=== PATIENT | female | born 1975 | race Caucasian/White ===

== ENCOUNTER 2021-05-06 12:39 | Inpatient (IN) ==
--- NOTE | 2021-05-06 14:00 | ED.ABDFE ---
HPI Time Seen Time Seen by Provider: 05/06/21 13:48 PCP Primary Care Physician: NICHELLE CASTELLANOS Complaint Chief Complaint:: PT REPORTS TO HAVING A HX OF A ABD GROIN ( PERIUMBELICAL ) PT REPORT THAT SHE IS HAVING INCREASED PAIN TO HIS AREA WHEN LIFTING COUGHING ,AND EATING ,BR Self Treatment fo Chief Complaint: TYLENOL COVID-19 Coronavirus risk:travel/contact w/high risk person: No Has patient experienced Coronavirus symptoms: No Source History Provided: Patient Mode of arrival Mode of Arrival: Ambulatory Timing Onset of Chief Complaint: 05/01/21 PMH PMH Past Medical History: Yes Past Medical History: Hypertension Past Surgical History: Yes Surgical History: Hysterectomy Family History History of Family Medical Conditions: Yes Family Medical History: Cancer Family Medical History Comment: HEART, Social History Does patient currently use any type of tobacco product: Yes Have you used tobacco products in the last 12 months: Yes Type of Tobacco Use: Cigarettes How many years tobacco product used: 30 Does any household member use tobacco: No Alcohol Use: None Do you use any recreational Drugs:: No Lives With: Family Lives Where: Home Travel Risk Coronavirus risk:travel/contact w/high risk person: No Has patient experienced Coronavirus symptoms: No Infectious screening In the last 2 months have you had wt loss of >10#?: NO Have you had fever, night sweats or hemotysis?: No Have you traveled outside the country in the last 6 months?: No Isolation: Standard PE Vital Signs Vitals: Temperature 98.3 F Pulse Rate 89 Respiratory Rate 22 Blood Pressure [Left Arm] 133/68 Blood Pressure 196/81 O2 Sat by Pulse Oximetry 97 ROR Labs Reviewed Result Diagrams: 05/06/21 14:20 05/06/21 14:20 Laboratory: WBC 8.6 X10^3/uL (3.6-10.0) 05/06/21 14:20 RBC 5.12 X10^6/uL (3.5-5.4) 05/06/21 14:20 Hgb 13.3 g/dL (12.0-16.0) 05/06/21 14:20 Hct 40.0 % (36.0-47.0) 05/06/21 14:20 MCV 78.1 fL (80.0-100.0) L 05/06/21 14:20 MCH 26.0 pg (27.0-34.0) L 05/06/21 14:20 MCHC 33.3 g/dL (33.0-35.0) 05/06/21 14:20 RDW 15.3 % (11.6-16.5) 05/06/21 14:20 Plt Count 195 X10^3/uL (150.0-450.0) 05/06/21 14:20 MPV 8.6 fL (7.4-11.0) 05/06/21 14:20 Neut % (Auto) 63.3 % (42.0-75.0) 05/06/21 14:20 Lymph % (Auto) 26.2 % (21.0-51.0) 05/06/21 14:20 [place] % (Auto) 7.1 % (0.0-13.0) 05/06/21 14:20 Eos % (Auto) 2.5 % (0.9-2.9) 05/06/21 14:20 Baso % (Auto) 0.9 % (0.2-1.0) 05/06/21 14:20 Neut # (Auto) 5.4 x10^3/uL (2.2-4.8) H 05/06/21 14:20 Lymph # (Auto) 2.2 X10^3/uL (1.3-2.9) 05/06/21 14:20 [place] # (Auto) 0.6 x10^3/uL (0.3-0.8) 05/06/21 14:20 Eos # (Auto) 0.2 x10^3/uL (0.0-0.2) 05/06/21 14:20 Baso # (Auto) 0.1 X10^3/uL (0.0-0.1) 05/06/21 14:20 Absolute Nucleated RBC 0.0 /100WBC 05/06/21 14:20 Sodium 142 mmol/L (136-145) 05/06/21 14:20 Corrected Sodium TNP 05/06/21 14:20 Potassium 4.5 mmol/L (3.5-5.1) 05/06/21 14:20 Chloride 107 mmol/L (98-107) 05/06/21 14:20 Carbon Dioxide 32.2 mmol/L (21-32) H 05/06/21 14:20 BUN 14 mg/dL (7-18) 05/06/21 14:20 Creatinine 0.76 mg/dL (0.55-1.02) 05/06/21 14:20 Est GFR (MDRD) Af Amer > 60 (>60) 05/06/21 14:20 Est GFR (MDRD) Non-Af > 60 (>60) 05/06/21 14:20 Glucose 101 mg/dL (65-99) H 05/06/21 14:20 Calcium 8.8 mg/dL (8.5-10.1) 05/06/21 14:20 Corrected Calcium 9.4 mg/dL (8.5-10.1) 05/06/21 14:20 Total Bilirubin 0.70 mg/dL (0.2-1.0) 05/06/21 14:20 AST 37 Units/L (15-37) 05/06/21 14:20 ALT 52 Units/L (12-78) 05/06/21 14:20 Alkaline Phosphatase 105 Units/L (46-116) 05/06/21 14:20 Total Protein 6.5 g/dL (6.4-8.2) 05/06/21 14:20 Albumin 3.2 g/dL (3.4-5.0) L 05/06/21 14:20 Globulin 3.3 g/dL (2.5-4.5) 05/06/21 14:20 Albumin/Globulin Ratio 1.0 Ratio (1.1-2.1) L 05/06/21 14:20 Amylase 36 Units/L (25-115) 05/06/21 14:20 Lipase 82 Units/L (73-393) 05/06/21 14:20 Specimen Type Random urine 05/06/21 15:09 Urine Color Yellow (YELLOW) 05/06/21 15:09 Urine Appearance Clear (CLEAR) 05/06/21 15:09 Urine pH 7.0 (5.0 - 8.0) 05/06/21 15:09 Ur Specific [place] 1.010 (1.000-1.030) 05/06/21 15:09 Urine Protein Negative (NEGATIVE) 05/06/21 15:09 Urine Glucose (UA) Negative (NEGATIVE) 05/06/21 15:09 Urine Ketones Negative (NEGATIVE) 05/06/21 15:09 Urine Occult Blood 1+ (NEGATIVE) 05/06/21 15:09 Urine Nitrite Negative (NEGATIVE) 05/06/21 15:09 Urine Bilirubin Negative (NEGATIVE) 05/06/21 15:09 Urine Urobilinogen 1+ (NORMAL) 05/06/21 15:09 Ur Leukocyte Esterase Negative (NEGATIVE) 05/06/21 15:09 Urine RBC 3-5 /HPF (0-3) A 05/06/21 15:09 Urine WBC 0-2 /HPF (0-5) 05/06/21 15:09 Ur Squamous Epith Cells Moderate /HPF (NEGATIVE) 05/06/21 15:09 Urine Bacteria 1+ /HPF (NEGATIVE) 05/06/21 15:09 Urine Mucus Few /HPF (NEGATIVE) 05/06/21 15:09 Ur Culture Indicated? No/not indicated 05/06/21 15:09 SARS-CoV-2 (PCR) Negative (NEGATIVE) 05/06/21 15:05 Influenza Type A (PCR) Negative (NEGATIVE) 05/06/21 15:05 Influenza Type B (PCR) Negative (NEGATIVE) 05/06/21 15:05 RSV (PCR) Negative (NEGATIVE) 05/06/21 15:05 Opioid Opioid Risk Tool Age (Vikas box if 16-45): No History of Preadolescent Sexual Abuse: No Total: 0 Total Score Risk Category: Low Risk Copyright: Po [place] predicting aberrant behaviors
[2021-05-06 14:30] LABS: BASOPHILS # (AUTO) 0.1 X10^3/uL (0.0-0.1); BASOPHILS % (AUTO) 0.9 % (0.2-1.0); EOSINOPHILS # (AUTO) 0.2 x10^3/uL (0.0-0.2); EOSINOPHILS % (AUTO) 2.5 % (0.9-2.9); HEMOGLOBIN 13.3 g/dL (12.0-16.0); LYMPHOCYTES # (AUTO) 2.2 X10^3/uL (1.3-2.9); LYMPHOCYTES % (AUTO) 26.2 % (21.0-51.0); MEAN CORPUSCULAR HGB CONC 33.3 g/dL (33.0-35.0); MEAN CORPUSCULAR VOLUME 78.1 fL (80.0-100.0); MEAN PLATELET VOLUME 8.6 fL (7.4-11.0); MONOCYTES # (AUTO) 0.6 x10^3/uL (0.3-0.8); MONOCYTES % (AUTO) 7.1 % (0.0-13.0); NEUTROPHILS # (AUTO) 5.4 x10^3/uL (2.2-4.8); NEUTROPHILS % (AUTO) 63.3 % (42.0-75.0); PLATELET COUNT 195 X10^3/uL (150.0-450.0); RED BLOOD COUNT 5.12 X10^6/uL (3.5-5.4); RED CELL DISTRIBUTION WIDTH 15.3 % (11.6-16.5); WHITE BLOOD COUNT 8.6 X10^3/uL (3.6-10.0)
--- NOTE | 2021-05-06 14:34 | CT ---
HISTORYPT REPORTS HAVING A HX OF ABD GROIN HERNIA ( PERIUMBELICAL ) PT REPORT THAT SHE IS HAVING INCREASED PAIN TO HIS AREA WHEN LIFTING COUGHING,AND EATINGSTUDYABDOMEN/PELVIS W/O CONCOMPARISONNoneTECHNIQUEMultiple axial images of the chest were obtained from the thoracic inlet to the upper abdomen after the administration of IV contrast. 3D reconstructions utilizing axial MIPS imaging was performed and reviewed. Dose reduction techniques including Automated Exposure Control (AEC) and adjustment of mA and kV were utilized.FINDINGSIncluded lung bases show scattered atelectasis. Liver shows evidence of steatosis. Gallbladder, spleen, kidneys, adrenal glands, pancreas grossly unremarkable. No bowel obstruction or overt inflammation. Pelvis is somewhat limited by beam hardening artifact and low signal to noise ratio. Appendix unremarkable. Patient's extreme ventral abdominal wall excluded from field of view due to habitus however there is a fat containing umbilical hernia with approximately 8 x 10 cm sac size and 3.1 cm aperture with mild fat stranding of the mesenteric fat at and deep to the aperture without significant stranding or fluid in the hernia sac. No bowel involvement of the hernia.Urinary bladder grossly unremarkable. Uterus absent. Ovaries not seen. No acute osseous finding. Degenerative changes of the spine. Scattered atherosclerosis.IMPRESSIONFat containing umbilical hernia with mild stranding could be incarcerated. Clinical correlation. Exam somewhat limited due to habitus without other definite acute finding.Electronically signed by: Trenton Maurer (May 06, 2021 14:32:12)
[2021-05-06 14:42] LABS: ALANINE AMINOTRANSFERASE 52 Units/L (12-78); ALBUMIN 3.2 g/dL (3.4-5.0); ALKALINE PHOSPHATASE 105 Units/L (46-116); AMYLASE 36 Units/L (25-115); ASPARTATE AMINO TRANSFERASE 37 Units/L (15-37); BLOOD UREA NITROGEN 14 mg/dL (7-18); CALCIUM 8.8 mg/dL (8.5-10.1); CARBON DIOXIDE 32.2 mmol/L (21-32); CHLORIDE 107 mmol/L (98-107); COR CA(FOR HYPOALB) 9.4 mg/dL (8.5-10.1); CREATININE 0.76 mg/dL (0.55-1.02); LIPASE 82 Units/L (73-393); SODIUM 142 mmol/L (136-145); TOTAL PROTEIN 6.5 g/dL (6.4-8.2); eGFR NON BLACK RACES > 60 (>60)
[2021-05-06 15:25] LABS: BILIRUBIN,URINE NEGATIVE (NEGATIVE); BLOOD/HEMOGLOBIN,URINE 1+ (NEGATIVE); GLUCOSE, URINE NEGATIVE (NEGATIVE); KETONES,URINE NEGATIVE (NEGATIVE); LEUKOCYTE ESTERASE ,URINE NEGATIVE (NEGATIVE); NITRITES,URINE NEGATIVE (NEGATIVE); PROTEIN,URINE NEGATIVE (NEGATIVE); UROBILINOGEN,URINE 1+ (NORMAL)
[2021-05-06 15:30] LABS: APPEARANCE,URINE CLEAR (CLEAR); COLOR,URINE YELLOW (YELLOW)
[2021-05-06 15:40] LABS: BACTERIA,URINE 1+ /HPF (NEGATIVE); MUCUS,URINE FEW /HPF (NEGATIVE); SQUAMOUS EPITHELIAL CELL,UR MODERATE /HPF (NEGATIVE)
--- NOTE | 2021-05-06 17:46 | DR.H&P ---
H&P History & Physical for Day of: H&P Date: 05/06/21 Chief Complaint Chief Complaint: 45-year-old morbidly obese female with known incarcerated umbilical/hernia with increasing abdominal pain. Some nausea and vomiting earlier today. Past medical history significant for tobacco abuse, COPD, hypertension. Allergies Allergies Allergy/AdvReac Type Severity Reaction Status Date / Time Penicillins Allergy Verified 05/06/21 12:53 Sulfa (Sulfonamide Allergy Verified 05/06/21 12:53 Antibiotics) [SULFA] History of Present Illness History of Present Illness: As above. CT scan performed in the emergency room consistent with incarcerated ventral/hernia incarcerated omentum. No obvious bowel incarcerated in this hernia. Past Medical History Past Medical History: COPD and Hypertension Past Surgical History Surgical History: Hysterectomy (Done laparoscopically within the last year.) Family History Family Medical History: Cancer Social History Does patient currently use any type of tobacco product: Yes Have you used tobacco products in the last 12 months: Yes Type of Tobacco Use: Cigarettes (> 1 pack per day) How many years tobacco product used: 30 Does any household member use tobacco: No Alcohol Use: None Medications Home Medications: Penicillins Allergy (Verified 05/06/21 12:53) Sulfa (Sulfonamide Antibiotics) [SULFA] Allergy (Verified 05/06/21 12:53) Labs Result Diagrams: 05/06/21 14:20 05/06/21 14:20 Labs: Laboratory WBC 8.6 X10^3/uL (3.6-10.0) 05/06/21 14:20 RBC 5.12 X10^6/uL (3.5-5.4) 05/06/21 14:20 Hgb 13.3 g/dL (12.0-16.0) 05/06/21 14:20 Hct 40.0 % (36.0-47.0) 05/06/21 14:20 MCV 78.1 fL (80.0-100.0) L 05/06/21 14:20 MCH 26.0 pg (27.0-34.0) L 05/06/21 14:20 MCHC 33.3 g/dL (33.0-35.0) 05/06/21 14:20 RDW 15.3 % (11.6-16.5) 05/06/21 14:20 Plt Count 195 X10^3/uL (150.0-450.0) 05/06/21 14:20 MPV 8.6 fL (7.4-11.0) 05/06/21 14:20 Neut % (Auto) 63.3 % (42.0-75.0) 05/06/21 14:20 Lymph % (Auto) 26.2 % (21.0-51.0) 05/06/21 14:20 [place] % (Auto) 7.1 % (0.0-13.0) 05/06/21 14:20 Eos % (Auto) 2.5 % (0.9-2.9) 05/06/21 14:20 Baso % (Auto) 0.9 % (0.2-1.0) 05/06/21 14:20 Neut # (Auto) 5.4 x10^3/uL (2.2-4.8) H 05/06/21 14:20 Lymph # (Auto) 2.2 X10^3/uL (1.3-2.9) 05/06/21 14:20 [place] # (Auto) 0.6 x10^3/uL (0.3-0.8) 05/06/21 14:20 Eos # (Auto) 0.2 x10^3/uL (0.0-0.2) 05/06/21 14:20 Baso # (Auto) 0.1 X10^3/uL (0.0-0.1) 05/06/21 14:20 Absolute Nucleated RBC 0.0 /100WBC 05/06/21 14:20 Sodium 142 mmol/L (136-145) 05/06/21 14:20 Corrected Sodium TNP 05/06/21 14:20 Potassium 4.5 mmol/L (3.5-5.1) 05/06/21 14:20 Chloride 107 mmol/L (98-107) 05/06/21 14:20 Carbon Dioxide 32.2 mmol/L (21-32) H 05/06/21 14:20 BUN 14 mg/dL (7-18) 05/06/21 14:20 Creatinine 0.76 mg/dL (0.55-1.02) 05/06/21 14:20 Est GFR (MDRD) Af Amer > 60 (>60) 05/06/21 14:20 Est GFR (MDRD) Non-Af > 60 (>60) 05/06/21 14:20 Glucose 101 mg/dL (65-99) H 05/06/21 14:20 Calcium 8.8 mg/dL (8.5-10.1) 05/06/21 14:20 Corrected Calcium 9.4 mg/dL (8.5-10.1) 05/06/21 14:20 Total Bilirubin 0.70 mg/dL (0.2-1.0) 05/06/21 14:20 AST 37 Units/L (15-37) 05/06/21 14:20 ALT 52 Units/L (12-78) 05/06/21 14:20 Alkaline Phosphatase 105 Units/L (46-116) 05/06/21 14:20 Total Protein 6.5 g/dL (6.4-8.2) 05/06/21 14:20 Albumin 3.2 g/dL (3.4-5.0) L 05/06/21 14:20 Globulin 3.3 g/dL (2.5-4.5) 05/06/21 14:20 Albumin/Globulin Ratio 1.0 Ratio (1.1-2.1) L 05/06/21 14:20 Amylase 36 Units/L (25-115) 05/06/21 14:20 Lipase 82 Units/L (73-393) 05/06/21 14:20 Specimen Type Random urine 05/06/21 15:09 Urine Color Yellow (YELLOW) 05/06/21 15:09 Urine Appearance Clear (CLEAR) 05/06/21 15:09 Urine pH 7.0 (5.0 - 8.0) 05/06/21 15:09 Ur Specific [place] 1.010 (1.000-1.030) 05/06/21 15:09 Urine Protein Negative (NEGATIVE) 05/06/21 15:09 Urine Glucose (UA) Negative (NEGATIVE) 05/06/21 15:09 Urine Ketones Negative (NEGATIVE) 05/06/21 15:09 Urine Occult Blood 1+ (NEGATIVE) 05/06/21 15:09 Urine Nitrite Negative (NEGATIVE) 05/06/21 15:09 Urine Bilirubin Negative (NEGATIVE) 05/06/21 15:09 Urine Urobilinogen 1+ (NORMAL) 05/06/21 15:09 Ur Leukocyte Esterase Negative (NEGATIVE) 05/06/21 15:09 Urine RBC 3-5 /HPF (0-3) A 05/06/21 15:09 Urine WBC 0-2 /HPF (0-5) 05/06/21 15:09 Ur Squamous Epith Cells Moderate /HPF (NEGATIVE) 05/06/21 15:09 Urine Bacteria 1+ /HPF (NEGATIVE) 05/06/21 15:09 Urine Mucus Few /HPF (NEGATIVE) 05/06/21 15:09 Ur Culture Indicated? No/not indicated 05/06/21 15:09 SARS-CoV-2 (PCR) Negative (NEGATIVE) 05/06/21 15:05 Influenza Type A (PCR) Negative (NEGATIVE) 05/06/21 15:05 Influenza Type B (PCR) Negative (NEGATIVE) 05/06/21 15:05 RSV (PCR) Negative (NEGATIVE) 05/06/21 15:05 Review of Systems Constitutional: denies No Symptoms Reported, See HPI, Fever, Chills, Sweats, Weakness, Malaise and Other Eyes: denies No Symptoms Reported, See HPI, Pain, Vision Change, Conjunctivae Inflammation, Eyelid Inflammation, Redness and Other ENT: Other (cough) Respiratory: denies No Symptoms Reported, See HPI, Dry, Shortness of Breath, Hemoptysis, SOB with Excertion, Pleuritic Pain, Sputum, Wheezing and Other Cardiovascular: denies No Symptoms Reported, Chest Pain, See HPI, Palpitations, Orthopnea, Paroxysmal Noc. Dyspnea, Edema, Light Headedness and Other Gastrointestinal: Nausea and Vomiting Genitourinary: denies No Symptoms Reported, See HPI, Dysuria, Frequency, Incontinence, Hematuria, Retention and Other Musculoskeletal: denies No Symptoms Reported, See HPI, Shoulder Pain, Arm Pain, Back Pain, Hand Pain, Leg Pain, Foot Pain, Neck Pain and Other Skin: denies No Symptoms Reported, See HPI, Rash, Lesions, Jaundice, Bruising, Wound, Ecchymosis and Other Neurological: denies No Symptoms Reported, See HPI, Weakness, Numbness, Incoordination, Change in Speech, Confusion, Seizures and Other Physical Exam Vital Signs: Temperature 98.3 F Pulse Rate [Left Brachial] 65 Pulse Rate 89 Respiratory Rate 18 Blood Pressure [Left Arm] 145/68 Blood Pressure 196/81 O2 Sat by Pulse Oximetry 100 Oriented: Normal, Time, Person and Place Eyes: negative Normal, Blurred Vision, Diplopia, Discharge, Pain, Redness, Photophobia and Other Ear: negative Normal, Right, Left, Swelling, Ecchymosis, Hemotypanum, Abrasion and Laceration Nose: negative Normal, Injected, Discharge, Blood and Other Throat: negative Normal, Tonsillar Hypertrophy, Red, Exudate, Dry and Other Respiratory: Rhonchi Throughout Cardiovascular: Normal : negative Normal, Dysuria, Hematuria, Frequency, Discharge, Testicular Pain, Bleeding, and Other Auscultation: Bowel Sounds: Normal Palpation: Other (incarcerated ventral / umbilical hernia) Tenderness: Normal Skin: negative Normal, Decreased Turgur, Rash, Papular, Macular, Maculopapular, Vesicular, Pustular, Petechial, Red, Tender, Hot, Diaphoresis, Wound, Bruising, Ecchymosis and Other Musculoskeletal: negative Normal, Right, Left, Shoulder, Clavicle, Arm, Elbow, Forearm, Wrist, Hand, Hip, Thigh, Knee, Leg, Ankle, Foot, Back:Thoracic, Back:Lumbar, Back:Midline, Back:Paraspinous, Pelvis, Swelling, Tender, Deformity, Pulse Deficit, Motor Deficit, Sensory Deficit, Instability and Crepitance Psychiatric: negative Normal, Anxiety, Depression, Agitation and Other Mood Description: Calm and Happy Speech Pattern: Clear and Appropriate Assessment/Plan (1) Incarcerated umbilical hernia: Status: Acute Plan: Patient to be admitted, hydrated and control pain. Will plan laparoscopic ventral hernia repair tomorrow. Risk and benefits discussed with the patient including possibility of conversion to open procedure. Possibility of bowel injury also discussed with the patient. She understands and agrees to proceed. Review H&P Reviewed: Yes Patient was examined?: Yes
[2021-05-06] MEDS: LR 1000 ML IV 1,000 ML IV SCH (18:05)
[2021-05-06] MEDS ORDERED: ZOFRAN INJ 4 MG VIAL IVP PRN (19:08)
[2021-05-06] MEDS: DILAUDID INJ IVP PRN (21:02)
[2021-05-07] MEDS: DILAUDID INJ IVP PRN ×2 (06:10→10:15)
[2021-05-07 07:43] LABS: BASOPHILS % (AUTO) 0.3 % (0.2-1.0); EOSINOPHILS # (AUTO) 0.2 x10^3/uL (0.0-0.2); EOSINOPHILS % (AUTO) 2.4 % (0.9-2.9); HEMATOCRIT 39.9 % (36.0-47.0); HEMOGLOBIN 13.3 g/dL (12.0-16.0); LYMPHOCYTES # (AUTO) 2.5 X10^3/uL (1.3-2.9); LYMPHOCYTES % (AUTO) 31.6 % (21.0-51.0); MEAN CORPUSCULAR HGB CONC 33.2 g/dL (33.0-35.0); MEAN CORPUSCULAR VOLUME 78.3 fL (80.0-100.0); MEAN PLATELET VOLUME 8.9 fL (7.4-11.0); MONOCYTES # (AUTO) 0.5 x10^3/uL (0.3-0.8); NEUTROPHILS # (AUTO) 4.8 x10^3/uL (2.2-4.8); NEUTROPHILS % (AUTO) 59.7 % (42.0-75.0); PLATELET COUNT 176 X10^3/uL (150.0-450.0); RED CELL DISTRIBUTION WIDTH 15.4 % (11.6-16.5); WHITE BLOOD COUNT 8.1 X10^3/uL (3.6-10.0)
[2021-05-07 08:02] LABS: ALANINE AMINOTRANSFERASE 58 Units/L (12-78); ALKALINE PHOSPHATASE 103 Units/L (46-116); AMYLASE 34 Units/L (25-115); ASPARTATE AMINO TRANSFERASE 41 Units/L (15-37); BLOOD UREA NITROGEN 9 mg/dL (7-18); CALCIUM 8.3 mg/dL (8.5-10.1); CARBON DIOXIDE 29.1 mmol/L (21-32); CHLORIDE 106 mmol/L (98-107); COR CA(FOR HYPOALB) 9.1 mg/dL (8.5-10.1); CREATININE 0.66 mg/dL (0.55-1.02); LIPASE 75 Units/L (73-393); SODIUM 141 mmol/L (136-145); TOTAL PROTEIN 6.2 g/dL (6.4-8.2); eGFR NON BLACK RACES > 60 (>60)
[2021-05-07] MEDS: LR 1000 ML IV 1,000 ML IV SCH (08:44)
[2021-05-07] MEDS ORDERED: PROVENTIL NEB TX 0.083% 2.5MG/ 3ML ONE (09:17)
[2021-05-07] MEDS ORDERED: PROVENTIL NEB TX 0.083% 2.5MG/ 3ML NEB ONE (09:50)
[2021-05-07] MEDS ORDERED: ANCEF 1 GRAM IV PREMIX* 0 G/0 ML BAG IV ONE (12:29)
[2021-05-07] MEDS ORDERED: LR 1000 ML IV 1,000 ML IV ONE (12:29)
[2021-05-07] MEDS ORDERED: OFIRMEV IV 1000 MG VIAL 1,000 MG/100 ML VIAL IV ONE (13:11)
[2021-05-07] MEDS ORDERED: BRIDION ONE (13:11)
[2021-05-07] MEDS ORDERED: DILAUDID INJ ONE (13:11)
[2021-05-07] MEDS ORDERED: DECADRON INJ ONE (13:11)
[2021-05-07] MEDS ORDERED: FENTANYL VIAL INJ 100 mcg ONE (13:11)
[2021-05-07] MEDS ORDERED: PEPCID 20 MG IV PREMIX* 20 MG/50 ML BAG IV ONE (13:12)
[2021-05-07] MEDS ORDERED: VERSED ONE (13:33)
[2021-05-07] MEDS ORDERED: DIPRIVAN VIAL ONE (13:33)
[2021-05-07] MEDS ORDERED: XYLOCAINE 2 % (PLAIN) ONE (13:33)
[2021-05-07] MEDS ORDERED: ZOFRAN INJ 4 MG VIAL ONE (13:33)
[2021-05-07] MEDS ORDERED: ULTANE GAS IN ONE (13:33)
[2021-05-07] MEDS ORDERED: ZEMURON 50 MG VIAL ONE (13:33)
[2021-05-07] MEDS ORDERED: KETALAR ONE (13:33)
[2021-05-07] MEDS ORDERED: MARCAINE/EPINEPHRINE ONE (13:41)
--- NOTE | 2021-05-07 15:26 | OR.IMMED ---
IMMEDIATE POST-OP NOTE Immediate Post-Op Note Pre-Op Diagnosis: Incarcerated ventral/umbilical hernia Post-Op Diagnosis: same Procedure: Laparoscopic repair of incarcerated ventral/umbilical hernia Description of Procedure: see operative summary Surgeon/English Language Learner Tutor: Fang Findings: as above Specimens Removed: none Estimated Blood Loss: < 100 cc Drains: Steven Martinez (EUNICE in space at umbilicus after omentum evacuated ) Complications: NOne Discharge Progress Notes: To PAC then floor, D/C home later today or in AM Condition: Stable Final Diagnosis: as above
[2021-05-07] MEDS ORDERED: ZOFRAN INJ 4 MG VIAL IVP PRN (15:31)
[2021-05-07] MEDS ORDERED: BARHEMSYS INJ IVP PRN (15:31)
[2021-05-07] MEDS ORDERED: PHENERGAN INJ 25 MG IM PRN (15:31)
[2021-05-07] MEDS ORDERED: DILAUDID INJ IVP PRN (15:31)
[2021-05-07] MEDS ORDERED: REGLAN INJ 10 MG VIAL IVP PRN (15:31)
[2021-05-07] MEDS ORDERED: BENADRYL INJ 50 MG VIAL IVP PRN (15:31)
[2021-05-07] MEDS: PERCOCET TAB 5/325 MG PO PRN (21:15)
--- NOTE | 2021-05-07 21:22 | NOTE.SOAP ---
Soap Note Note for Day of Date of Exam: 05/07/21 Subjective Data Subjective Data: earlier today s/p laparoscopic ventral hernia repair of incarcerated ventral hernia. Binder in place . Taking liquids . Objective Data Temperature: 97.6 F Pulse Rate: 72 Respiratory Rate: 20 Blood Pressure: 132/65 O2 Sat by Pulse Oximetry: 95 Objective Data: EUNICE with serosangunous fluid drainage Assessment Assessment: S/P laparoscopic ventral hernia repair . Plan Plan: Discharge home in AM
[2021-05-07] MEDS ORDERED: DUONEB 0.5 MG/3 MG (3 mL) NEB ONE (22:00)
[2021-05-08] MEDS ORDERED: PROVENTIL NEB TX 0.083% 2.5MG/ 3ML NEB ONE (07:15)
[2021-05-08] MEDS ORDERED: PROVENTIL NEB TX 0.083% 2.5MG/ 3ML ONE (07:22)
[2021-05-08 08:39] VITALS: BP 138/72
[2021-05-08] MEDS: PERCOCET TAB 5/325 MG PO PRN (09:49)
--- NOTE | 2021-05-08 11:37 | PCM.DCPLAN ---
DISCHARGE SUMMARY Admission Date Date of Admission: 05/06/21 Discharge Date Discharge Date: 05/08/21 Admission Diagnoses (1) Incarcerated umbilical hernia: Status: Acute Discharge Diagnoses Discharge Diagnosis: incarcerated ventral/umbilical hernia Discharge Medications Discharge Medications: Home Medication List amitriptyline 50 mg PO HS 05/07/21 [History] duloxetine [Cymbalta] 20 mg PO BID 05/07/21 [History] lamotrigine 25 mg PO BID 05/07/21 [History] lisinopril 40 mg PO DAILY 05/07/21 [History] metoprolol succinate 100 mg PO DAILY 05/07/21 [History] oxycodone-acetaminophen 1 tab PO Q4H PRN #30 tab MDD 4 05/08/21 [Rx] Prescriptions: oxycodone-acetaminophen Florian Headley [facility] Course Vital Signs: Temperature 97.6 F Pulse Rate [Left Brachial] 104 Pulse Rate 72 Respiratory Rate 20 Blood Pressure [Left Arm] 138/72 Blood Pressure 132/65 O2 Sat by Pulse Oximetry 90 Latest Lab Results: Laboratory Last Values WBC 8.1 X10^3/uL (3.6-10.0) 05/07/21 07:06 RBC 5.10 X10^6/uL (3.5-5.4) 05/07/21 07:06 Hgb 13.3 g/dL (12.0-16.0) 05/07/21 07:06 Hct 39.9 % (36.0-47.0) 05/07/21 07:06 MCV 78.3 fL (80.0-100.0) L 05/07/21 07:06 MCH 26.0 pg (27.0-34.0) L 05/07/21 07:06 MCHC 33.2 g/dL (33.0-35.0) 05/07/21 07:06 RDW 15.4 % (11.6-16.5) 05/07/21 07:06 Plt Count 176 X10^3/uL (150.0-450.0) 05/07/21 07:06 MPV 8.9 fL (7.4-11.0) 05/07/21 07:06 Neut % (Auto) 59.7 % (42.0-75.0) 05/07/21 07:06 Lymph % (Auto) 31.6 % (21.0-51.0) 05/07/21 07:06 [place] % (Auto) 6.0 % (0.0-13.0) 05/07/21 07:06 Eos % (Auto) 2.4 % (0.9-2.9) 05/07/21 07:06 Baso % (Auto) 0.3 % (0.2-1.0) 05/07/21 07:06 Neut # (Auto) 4.8 x10^3/uL (2.2-4.8) 05/07/21 07:06 Lymph # (Auto) 2.5 X10^3/uL (1.3-2.9) 05/07/21 07:06 [place] # (Auto) 0.5 x10^3/uL (0.3-0.8) 05/07/21 07:06 Eos # (Auto) 0.2 x10^3/uL (0.0-0.2) 05/07/21 07:06 Baso # (Auto) 0.0 X10^3/uL (0.0-0.1) 05/07/21 07:06 Absolute Nucleated RBC 0.2 /100WBC 05/07/21 07:06 Sodium 141 mmol/L (136-145) 05/07/21 07:06 Corrected Sodium TNP 05/07/21 07:06 Potassium 4.0 mmol/L (3.5-5.1) 05/07/21 07:06 Chloride 106 mmol/L (98-107) 05/07/21 07:06 Carbon Dioxide 29.1 mmol/L (21-32) 05/07/21 07:06 BUN 9 mg/dL (7-18) 05/07/21 07:06 Creatinine 0.66 mg/dL (0.55-1.02) 05/07/21 07:06 Est GFR (MDRD) Af Amer > 60 (>60) 05/07/21 07:06 Est GFR (MDRD) Non-Af > 60 (>60) 05/07/21 07:06 Glucose 109 mg/dL (65-99) H 05/07/21 07:06 Calcium 8.3 mg/dL (8.5-10.1) L 05/07/21 07:06 Corrected Calcium 9.1 mg/dL (8.5-10.1) 05/07/21 07:06 Total Bilirubin 0.70 mg/dL (0.2-1.0) 05/07/21 07:06 AST 41 Units/L (15-37) H 05/07/21 07:06 ALT 58 Units/L (12-78) 05/07/21 07:06 Alkaline Phosphatase 103 Units/L (46-116) 05/07/21 07:06 Total Protein 6.2 g/dL (6.4-8.2) L 05/07/21 07:06 Albumin 3.0 g/dL (3.4-5.0) L 05/07/21 07:06 Globulin 3.2 g/dL (2.5-4.5) 05/07/21 07:06 Albumin/Globulin Ratio 0.9 Ratio (1.1-2.1) L 05/07/21 07:06 Amylase 34 Units/L (25-115) 05/07/21 07:06 Lipase 75 Units/L (73-393) 05/07/21 07:06 Specimen Type Random urine 05/06/21 15:09 Urine Color Yellow (YELLOW) 05/06/21 15:09 Urine Appearance Clear (CLEAR) 05/06/21 15:09 Urine pH 7.0 (5.0 - 8.0) 05/06/21 15:09 Ur Specific [place] 1.010 (1.000-1.030) 05/06/21 15:09 Urine Protein Negative (NEGATIVE) 05/06/21 15:09 Urine Glucose (UA) Negative (NEGATIVE) 05/06/21 15:09 Urine Ketones Negative (NEGATIVE) 05/06/21 15:09 Urine Occult Blood 1+ (NEGATIVE) 05/06/21 15:09 Urine Nitrite Negative (NEGATIVE) 05/06/21 15:09 Urine Bilirubin Negative (NEGATIVE) 05/06/21 15:09 Urine Urobilinogen 1+ (NORMAL) 05/06/21 15:09 Ur Leukocyte Esterase Negative (NEGATIVE) 05/06/21 15:09 Urine RBC 3-5 /HPF (0-3) A 05/06/21 15:09 Urine WBC 0-2 /HPF (0-5) 05/06/21 15:09 Ur Squamous Epith Cells Moderate /HPF (NEGATIVE) 05/06/21 15:09 Urine Bacteria 1+ /HPF (NEGATIVE) 05/06/21 15:09 Urine Mucus Few /HPF (NEGATIVE) 05/06/21 15:09 Ur Culture Indicated? No/not indicated 05/06/21 15:09 SARS-CoV-2 (PCR) Negative (NEGATIVE) 05/06/21 15:05 Influenza Type A (PCR) Negative (NEGATIVE) 05/06/21 15:05 Influenza Type B (PCR) Negative (NEGATIVE) 05/06/21 15:05 RSV (PCR) Negative (NEGATIVE) 05/06/21 15:05 Hospital Course: 45-year-old female, morbidly obese who presented with a incarcerated ventral/umbilical hernia. She had increasing pain. She was admitted and taken to the operating suite the next day where she underwent laparoscopic ventral hernia repair. She has tolerated this very well. She will be discharged home on her usual medications. She is encouraged not to smoke cigarettes. In addition to her usual medications she will be given Percocet 5 mg tablets ,one every 6 hours PRN pain,#30. She will have an appointment to see me in one week in the office. She has a 7 mm Steven Martinez drain the space of the hernia sac. She will be discharged with this in place and will record the drainage from it. Instructions Instructions: Hernia, Adult Incentive Spirometer Hand Washing, [id number] Laryngoscopy Abdominal Pain, Adult Stitches, Nirav, or Adhesive Wound Closure, [id number] Incision Care, Adult, [id number] Laparoscopic Ventral Hernia Repair, Care After Managing Your Hypertension Forms: Excuse From Work or School Precautions for COVID19 Patient Portal Social Distancing
--- NOTE | 2021-05-08 13:26 | DR.OPNOTE ---
OP NOTE Pre-Op Diagnosis: Incarcerated ventral/ umbilical hernia . Post-Op Diagnosis: Same Procedure Date Date Of Procedure: 05/07/21 Procedure: This patient was taken to the operating suite and placed in the supine position . General anesthesia induced and the entire abdomen prepped and draped in sterile fashion. Timeout for the procedure obtained. 5 mm incision was made to the right side of abdomen lateral to the rectus sheath and a 5 mm optical trocar used to enter the abdominal cavity and the abdomen insufflated to 15 mmHg with carbon dioxide. Under direct vision a 10 mm trocar placed in the right upper quadrant and a 5 mm trocar placed in the right lower quadrant. Using blunt and sharp dissection the incarcerated omentum was removed from the defect and placed back in the abdominal cavity. This left a significant space defect underneath the umbilicus. A 17 x 13 cm Ventrio mesh was selected and holding sutures of 2-0 Gortex sutures placed in equidistant quadrants. This mesh was oval in shape. The mesh was moistened, rolled up and placed in the abdominal cavity and unrolled. Incisions in 4 quadrants around the defect were made with a number 15 knife blade and a needle passer used to bring the sutures through this tying them into position. The mesh was then further secured to the abdominal wall with absorbable tacks . And was inspected and there was no difficulty. Incision was made inferior to the space defect on the skin and counter incision made superiorly . Hemostat was used to go across both of these and a 7 mm Steven Martinez drain placed in the space and placed to suction. This was secured to the skin with interrupted silk suture. All incisions then closed with 3-0 Vicryl subcutaneous sutures and the skin close was Steri- Strips. A total of 30 mL of 0.5% Marcaine with epinephrine was distributed between all the laparoscopic incisions. The patient tolerated this very well and was extubated and taken to the PACU in good condition. Type of Anesthesia: Local (30 cc 0.5% Marcaine with epinephrine distributed between the laparoscopic incisions. ) and General Anesthetic w/ETT Findings: as above Specimen/Pathology: none Type of Fluids Used:: Lactated Ringers EBL: < 100 cc Drains/Tubes Placed: Steven Martinez (7 mm EUNICE in space of the hernia after reduction of incarceration) Complications:: none Needle/Sponge Count:: correct Disposition/Condition: Pt. tolerated procedure without difficulty. Extubated in the OR and taken to PACU in stable condition.
== END 2021-05-08 13:30 | disposition home or self-care (01) | DRG 354 ==
LOC: ER 12:52 → OBS 16:56
PROVIDERS: ADMIT Surgery; ATTEND Surgery
DX: K42.9 Umbilical hernia without obstruction or gangrene; K43.6 Other and unspecified ventral hernia with obstruction, without gangrene; K42.0 Umbilical hernia with obstruction, without gangrene; I10 Essential (primary) hypertension; Z20.822 Contact with and (suspected) exposure to COVID-19; E66.01 Morbid (severe) obesity due to excess calories; Z01.812 Encounter for preprocedural laboratory examination; J44.9 Chronic obstructive pulmonary disease, unspecified